=== PATIENT | female | born 1975 | race Caucasian/White ===

== ENCOUNTER 2021-01-14 17:52 | Emergency (ER) | payer MEDICARE ==
[2021-01-14] MEDS ORDERED: Sodium Chloride 0.9% 1000 ML 1,000 ML IV STA (18:09)
[2021-01-14] MEDS ORDERED: Zofran 4 MG/2 ML VIAL IV ONE (18:09)
[2021-01-14] MEDS ORDERED: MORPHINE SULFATE 4 MG INJ IV ONE (18:09)
[2021-01-14] MEDS ORDERED: MORPHINE SULFATE 4 MG INJ ONE (18:25)
[2021-01-14] MEDS ORDERED: Zofran 4 MG/2 ML VIAL ONE (18:25)
[2021-01-14] MEDS ORDERED: Sodium Chloride 0.9% 1000 ML 1,000 ML ONE (18:25)
--- NOTE | 2021-01-14 18:26 | ERPHSYRPT ---
- History of Present Illness Time Seen by Provider: 01/14/21 18:08 Historian: patient Exam Limitations: no limitations Patient Subjective Stated Complaint: abd pain Triage Nursing Assessment: pt to ED c/o abd pain x 1 month. seen at [facility] last month and states "they found some kind of mass right on my stomach." has appt scheduled with GI but pain is worsening and she states she can not wait to see the specialist. hx IBS and has diarrhea chronically. states pain did cause 1 episode emesis today. Physician History: 45 years old female presented in the ER with off-and-on upper abdominal pain for couple of months, was evaluated at [facility] little over a month ago for similar symptoms and was recommended outpatient gastroenterology follow-up as there was a suspicious mass in this stomach according to patient. Patient reports lately her pain is getting out of control and had a couple of episodes of vomiting yesterday with nausea today. Denies any diarrhea. Does have a history of IBS but this pain is different than usual. No fever or chills reported. She is supposed to see her enamel finisher in few days. Timing/Duration: week(s), gradual onset, worse Activities at Onset: rest Quality: sharpness Abdominal Pain Onset Location: LUQ, epigastric, periumbilical Pain Radiation: no radiation Severity of Pain-Max: moderate Severity of Pain-Current: moderate Modifying Factors: Improves With: nothing Associated Symptoms: nausea, vomiting Previous symptoms: same symptoms as today Allergies/Adverse Reactions: No Known Drug Allergies Allergy (Unverified 01/14/21 18:14) Home Medications: ARIPiprazole [Aripiprazole] 5 mg PO DAILY 01/14/21 [History] Albuterol 2.5 mg/0.5 ml [PROVENTIL Solution 2.5 MG/0.5 ML] 2.5 mg IH DAILY 01/14/21 [History] Allopurinol 100 mg [Zyloprim 100 mg] 100 mg PO DAILY 01/14/21 [History] Atorvastatin Calcium [Lipitor 20MG Tablet] 20 mg PO DAILY 01/14/21 [History] Fluticasone/Umeclidin/Vilanter [Trelegy Ellipta 200-62.5-25] 1 each IH DAILY 01/14/21 [History] Gabapentin 100 mg [Neurontin 100 MG] 100 mg PO DAILY 01/14/21 [History] Hydroxyzine HCl 25 mg [Atarax 25 mg] 25 mg PO DAILY 01/14/21 [History] Metformin HCl 500 mg [Glucophage 500 MG] 500 mg PO DAILY 01/14/21 [History] Rivaroxaban [Xarelto] 2.5 mg PO DAILY 01/14/21 [History] lisinopriL [Lisinopril] 20 mg PO DAILY 01/14/21 [History] Hx Tetanus, Diphtheria Vaccination/Date Given: No Hx Influenza Vaccination/Date Given: Yes Hx Pneumococcal Vaccination/Date Given: Yes Immunizations Up to Date: No Travel Risk - International Travel Have you traveled outside of the country in past 3 weeks: No - Coronavirus Screening Are you exhibiting any of the following symptoms?: No Close contact with a COVID-19 positive Pt in past 14-21 Days: No - Vaccine Status Have you recieved a Covid-19 vaccination: 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[employer]: [employer] - Vaccination Dates Date of 2cond Vaccination (if applicable): july - Past Medical History Pertinent Past Medical History: Yes Neurological History: Peripheral Neuropathy Cardiac History: Arrhythmia, Hypertension Respiratory History: Asthma, Sleep Apnea Endocrine Medical History: Diabetes Type II GI Medical History: GERD, Irritable Bowel Psycho-Social History: Anxiety, Bipolar, Depression Female Reproductive Disorders: Menstrual Problems Other Medical History: ovarian cyst - Past Surgical History Past Surgical History: Yes Gastrointestinal: Cholecystectomy Musculoskeletal: Orthopedic Surgery Other Surgical History: exploratory surgeries for ovarian cyst, cyst removed. R knee - Social History Smoking Status: Current every day smoker How long have you smoked: years Exposure to second hand smoke: Yes Drug Use: none Patient Lives Alone: No - Female History Hx Now: (unkn) - Nursing Vital Signs Nursing Vital Signs: Initial Vital Signs Temperature 98.4 F 01/14/21 17:58 Pulse Rate 108 H 01/14/21 17:58 Respiratory Rate 20 01/14/21 17:58 Blood Pressure 184/128 01/14/21 17:58 O2 Sat by Pulse Oximetry 98 01/14/21 17:58 Pain Scale Pain Intensity 5 - Physical Exam General Appearance: no apparent distress, alert Eye Exam: PERRL/EOMI, eyes nml inspection Ears, Nose, Throat Exam: normal ENT inspection, pharynx normal Neck Exam: normal inspection, supple, full range of motion Respiratory Exam: normal breath sounds, lungs clear Cardiovascular Exam: normal heart sounds, tachycardia Gastrointestinal/Abdomen Exam: soft, normal bowel sounds, tenderness (Epigastric/periumbilical/left upper quadrant) Back Exam: normal inspection, normal range of motion, No CVA tenderness Extremity Exam: normal inspection, normal range of motion Neurologic Exam: alert, oriented x 3, cooperative, imaging nurse II-XII nml as tested Skin Exam: normal color SpO2 Interpretation: normal SpO2: 98 O2 Delivery: Room Air Ordered Tests: Active Orders 24 hr Category Date Time Status IV Insertion STAT Care 01/14/21 18:09 Active NPO (ED) STAT Care 01/14/21 18:09 Active ABDOMEN AND PELVIS W CONTRAST [CT] Stat Exams 01/14/21 18:09 Taken AMYLASE Stat Lab 01/14/21 18:22 Completed CBC W DIFF Stat Lab 01/14/21 18:22 Completed CMP Stat Lab 01/14/21 18:22 Completed HCG,QUALITATIVE URINE Stat Lab 01/14/21 18:14 Completed LIPASE Stat Lab 01/14/21 18:22 Completed UA W/RFX UR CULTURE Stat Lab 01/14/21 18:14 Completed Medication Summary Discontinued Medications Generic Name Dose Route Start Last Admin Trade Name Freq PRN Reason Stop Dose Admin Sodium Chloride 1,000 mls @ 999 mls/hr 01/14/21 18:09 01/14/21 18:27 Sodium Chloride 0.9% 1000 Ml IV 01/14/21 19:09 999 mls/hr .Q1H1M STA Administration Sodium Chloride Confirm 01/14/21 18:25 Sodium Chloride 0.9% 1000 Ml Administered 01/14/21 18:26 Dose 1,000 mls @ ud .ROUTE .STK-MED ONE Morphine Sulfate 4 mg 01/14/21 18:09 01/14/21 18:28 Morphine Sulfate 4 Mg Inj IV 01/14/21 18:10 4 mg STAT ONE Administration Morphine Sulfate Confirm 01/14/21 18:25 Morphine Sulfate 4 Mg Inj Administered 01/14/21 18:26 Dose 4 mg .ROUTE .STK-MED ONE Ondansetron HCl 4 mg 01/14/21 18:09 01/14/21 18:28 Zofran 4 Mg/2 Ml Vial IV 01/14/21 18:10 4 mg STAT ONE Administration Ondansetron HCl Confirm 01/14/21 18:25 Zofran 4 Mg/2 Ml Vial Administered 01/14/21 18:26 Dose 4 mg .ROUTE .STK-MED ONE Lab/Rad Data: Laboratory Result Diagrams 01/14/21 18:22 01/14/21 18:22 Laboratory Results 01/14/21 01/14/21 01/14/21 Range/Units 18:22 18:22 18:14 WBC 10.3 (4.0-10.5) K/mm3 RBC 4.79 (4.1-5.4) M/mm3 Hgb 13.5 (12.0-16.0) gm/dl Hct 42.3 (35-47) % MCV 88.3 (78-100) fl MCH 28.2 (26-32) pg MCHC 31.9 L (32-36) g/dl RDW 14.3 H (11.5-14.0) % Plt Count 452 H (150-450) K/mm3 MPV 9.2 (7.5-11.0) fl Gran % 64.4 (36.0-66.0) % Eos # (Auto) 0.17 (0-0.5) Absolute Lymphs (auto) 2.82 (1.0-4.6) Absolute Monos (auto) 0.66 (0.0-1.3) Lymphocytes % 27.3 (24.0-44.0) % Monocytes % 6.4 (0.0-12.0) % Eosinophils % 1.6 (0.00-5.0) % Basophils % 0.3 (0.0-0.4) % Absolute Granulocytes 6.64 (1.4-6.9) Basophils # 0.03 (0-0.4) Sodium 134 L (137-145) mmol/L Potassium 3.9 (3.5-5.1) mmol/L Chloride 102 (98-107) mmol/L Carbon Dioxide 21 L (22-30) mmol/L Anion Gap 14.6 (5-15) MEQ/L BUN 10 (7-17) mg/dL Creatinine 0.86 (0.52-1.04) mg/dL Estimated GFR > 60.0 ML/MIN Glucose 166 H (74-106) mg/dL Calcium 9.1 (8.4-10.2) mg/dL Total Bilirubin 0.40 (0.2-1.3) mg/dL AST 30 (14-36) U/L ALT 26 (0-35) U/L Alkaline Phosphatase 88 (38-126) U/L Serum Total Protein 7.2 (6.3-8.2) g/dL Albumin 4.0 (3.5-5.0) g/dL Amylase 50 (30-110) U/L Lipase 104 (23-300) U/L Urine Color (YELLOW) Urine Appearance (CLEAR) Urine pH (5-6) Ur Specific [place] (1.005-1.025) Urine Protein (Negative) Urine Ketones (NEGATIVE) Urine Blood (0-5) Diego/ul Urine Nitrite (NEGATIVE) Urine Bilirubin (NEGATIVE) Urine Urobilinogen (0-1) mg/dL Ur Leukocyte Esterase (NEGATIVE) Urine WBC (Auto) (0-5) /HPF Urine RBC (Auto) (0-2) /HPF U Epithel Cells (Auto) (FEW) /HPF Urine Bacteria (Auto) (NEGATIVE) /HPF Calcium Oxalate Crystal (NEGATIVE) /HPF Urine Mucus (Auto) (NEGATIVE) /HPF Urine Culture Reflexed (NO) Urine Glucose (NEGATIVE) mg/dL Urine HCG, Qual NEGATIVE (Negative) 01/14/21 Range/Units 18:14 WBC (4.0-10.5) K/mm3 RBC (4.1-5.4) M/mm3 Hgb (12.0-16.0) gm/dl Hct (35-47) % MCV (78-100) fl MCH (26-32) pg MCHC (32-36) g/dl RDW (11.5-14.0) % Plt Count (150-450) K/mm3 MPV (7.5-11.0) fl Gran % (36.0-66.0) % Eos # (Auto) (0-0.5) Absolute Lymphs (auto) (1.0-4.6) Absolute Monos (auto) (0.0-1.3) Lymphocytes % (24.0-44.0) % Monocytes % (0.0-12.0) % Eosinophils % (0.00-5.0) % Basophils % (0.0-0.4) % Absolute Granulocytes (1.4-6.9) Basophils # (0-0.4) Sodium (137-145) mmol/L Potassium (3.5-5.1) mmol/L Chloride (98-107) mmol/L Carbon Dioxide (22-30) mmol/L Anion Gap (5-15) MEQ/L BUN (7-17) mg/dL Creatinine (0.52-1.04) mg/dL Estimated GFR ML/MIN Glucose (74-106) mg/dL Calcium (8.4-10.2) mg/dL Total Bilirubin (0.2-1.3) mg/dL AST (14-36) U/L ALT (0-35) U/L Alkaline Phosphatase (38-126) U/L Serum Total Protein (6.3-8.2) g/dL Albumin (3.5-5.0) g/dL Amylase (30-110) U/L Lipase (23-300) U/L Urine Color YELLOW (YELLOW) Urine Appearance CLOUDY (CLEAR) Urine pH 6.0 (5-6) Ur Specific [place] 1.025 (1.005-1.025) Urine Protein 30 (Negative) Urine Ketones NEGATIVE (NEGATIVE) Urine Blood NEGATIVE (0-5) [place]/ul Urine Nitrite NEGATIVE (NEGATIVE) Urine Bilirubin NEGATIVE (NEGATIVE) Urine Urobilinogen 2 (0-1) mg/dL Ur Leukocyte Esterase NEGATIVE (NEGATIVE) Urine WBC (Auto) NONE (0-5) /HPF Urine RBC (Auto) NONE (0-2) /HPF U Epithel Cells (Auto) RARE (FEW) /HPF Urine Bacteria (Auto) NONE (NEGATIVE) /HPF Calcium Oxalate Crystal 51-99 (NEGATIVE) /HPF Urine Mucus (Auto) SLIGHT (NEGATIVE) /HPF Urine Culture Reflexed NO (NO) Urine Glucose NEGATIVE (NEGATIVE) mg/dL Urine HCG, Qual (Negative) - Progress Progress: improved Progress Note: 01/14/21 19:49 45 years old is evaluated for upper abdominal pain with vomiting yesterday and nausea today. She is given fluid bolus and a dose of morphine, on reevaluation feeling much better. No peritoneal signs on repeated evaluation. She was tachycardic on presentation which is also improved. She has normal white count, grossly unremarkable chemistries. I have obtained CT abdomen pelvis with contrast which is negative per preliminary report by Dr. Law. Her symptoms could be acid reflux/gastritis related and I would give her Carafate to take along with Protonix . She is encouraged to keep appointment with her enamel finisher. Discussed signs symptoms of worsening needing return to ER which she seems understanding. At this point patient is being discharged in stable condition. 01/14/21 19:51 Counseled pt/family regarding: lab results, diagnosis, need for follow-up, rad results - Departure Departure Disposition: Home Clinical Impression: Upper abdominal pain Condition: Stable Critical Care Time: No Referrals: DOCTOR,NO FAMILY [Primary Care Provider] - RADHA MCMAHON MD [ACTIVE STAFF] - Follow Up with PCP/3 days Instructions: Acute Abdomen (Belly Pain), Adult (DC) Additional Instructions: Take Tylenol as needed for pain. Follow-up with your primary care and enamel finisher for reevaluation. Return to ER for worsening abdominal pain, intractable nausea vomiting etc. Prescriptions: Sucralfate 1 gm [Carafate 1 GM] 1 g PO ACHS #30 tablet PANTOPRAZOLE 40 mg Tablet [Protonix 40MG Tablet] 40 mg PO QAM #30 tab
[2021-01-14 18:30] LABS: Absolute Neutrophil Ct (ANC) 6.64 (1.4-6.9); BASOPHIL % 0.3 % (0.0-0.4); Basophil (Absolute #) 0.03 (0-0.4); Eosinophil % 1.6 % (0.00-5.0); Eosinophil (Absolute #) 0.17 (0-0.5); Hematocrit 42.3 % (35-47); Hemoglobin 13.5 gm/dl (12.0-16.0); Lymphocyte (Absolute #) 2.82 (1.0-4.6); Lymphocytes % 27.3 % (24.0-44.0); Mean Cell Volume 88.3 fl (78-100); Mean Corpuscular Hemoglobin 28.2 pg (26-32); Mean Corpuscular Hgb Concent. 31.9 g/dl (32-36); Mean Platelet Volume 9.2 fl (7.5-11.0); Monocyte (Absolute #) 0.66 (0.0-1.3); Monocytes % 6.4 % (0.0-12.0); Neutrophil % 64.4 % (36.0-66.0); Platelet Count 452 K/mm3 (150-450); Red Blood Count 4.79 M/mm3 (4.1-5.4); Red Cell Distribution Width 14.3 % (11.5-14.0); White Blood Count 10.3 K/mm3 (4.0-10.5)
[2021-01-14 18:39] LABS: ALKALINE PHOSPHATASE 88 U/L (38-126); AMYLASE 50 U/L (30-110); ANION GAP 14.6 MEQ/L (5-15); BLOOD UREA NITROGEN 10 mg/dL (7-17); CHLORIDE 102 mmol/L (98-107); Calcium 9.1 mg/dL (8.4-10.2); Carbon Dioxide 21 mmol/L (22-30); Creatinine 1 0.86 mg/dL (0.52-1.04); EST GLOMERULAR FILTRATION RATE > 60.0 ML/MIN; Glucose 166 mg/dL (74-106); LIPASE 104 U/L (23-300); Potassium 3.9 mmol/L (3.5-5.1); SGOT/AST 30 U/L (14-36); SGPT/ALT 26 U/L (0-35); SODIUM 134 mmol/L (137-145); Total Protein 7.2 g/dL (6.3-8.2)
[2021-01-14 18:40] LABS: Appearance CLOUDY (CLEAR); Bilirubin NEGATIVE (NEGATIVE); Blood NEGATIVE Ery/ul (0-5); Epithelial Cells RARE /HPF (FEW); Glucose NEGATIVE (NEGATIVE); Ketones NEGATIVE (NEGATIVE); Leukocyte Esterase NEGATIVE (NEGATIVE); Mucus SLIGHT /HPF (NEGATIVE); Nitrite NEGATIVE (NEGATIVE); Protein,Urine Dip 30 (Negative); Specific Gravity 1.025 (1.005-1.025); Urobilinogen 2 mg/dL (0-1)
[2021-01-14 19:57] VITALS: BP 175/108; PULSE 96; O2SAT 99
--- NOTE | 2021-01-15 09:13 | XRAY ---
Indication: Abdomen pain 2.5 weeks. Multiple contiguous axial images obtained through the abdomen and pelvis using 80 cc Isovue 370 contrast. Comparison: None Lung bases are clear. Heart not enlarged. Noncontrasted stomach and bowel loops nonobstructed with normal air-filled appendix. Previous cholecystectomy. 1.1 cm left ovary cyst. No free fluid/air. Remaining liver, pancreas, spleen, adrenal glands, kidneys, ureters, bladder, uterus, and ovaries are unremarkable. Mild scattered aortoiliac calcifications. No AAA or pathologic retroperitoneal lymphadenopathy. Osseous structures intact with mild/moderate degenerative changes throughout the thoracolumbar spine. No ventral or inguinal hernias. Impression: Negative CT abdomen/pelvis with contrast exam. Incidental findings above.
== END 2021-01-14 20:16 | disposition home or self-care (01) ==
LOC: ED 17:52
DX: R10.10 Upper abdominal pain, unspecified (principal)
CPT/HCPCS: 36000; 36415; 74177; 80053; 81001; 82150; 83690; 84703; 85025; 96360; 96374; 96375; 99284; J2270; J2405